=== PATIENT | female | born 1945 | race Caucasian/White ===

== ENCOUNTER → 2017-08-08 | Outpatient (CLI) | payer OTHER, BC ==
[~2017-08-08] VITALS: Ht 165.1 cm; Wt 84.8 kg
[~2017-08-08] MED LIST: ALEVE220 M1 PO; ALEVE220 MG PO; ALLEGRA ALLERG180 MG PO; ARTIFICIAL TEAR15 M3 OPHTHALMIC; ASA81BEC PO; FLONASE 0.05%50 MCG INH; FLONASE 0.05%50 MCG NASAL; GLUCOPHAGE XR500 MG PO; GLUCOPHAGE XR750 MG PO; HUMALOG100 UNIT/1; HYDROCHLOROTHIA25 M2 PO; IBUPROFEN 200200 M1 PO; IMDUR 60 MG TAB60 M1 PO; KEFLEX250 M1 PO; LANTUS SUBQ; LIPITOR10 MG PO; METANX CAPSULE1 EACH PO; METFORMIN HCL500 MG PO; SINGULAIR 10 MG10 MG PO; TOPROL XL50 MG PO; TYLENOL EXTRA500 MG PO; VERAPAMIL ER120 MG PO
--- NOTE | ~2017-08-08 | P ---
[facility] [place] [address] PROCEDURE REPORT Name: BREE GRUBER [id number] Admission: 08/08/17 Attend Phys: Emeterio Rodriguez MD Discharge: Date of : 49 Report #: [id number] THIS REPORT FOR: //name// CC: Emeterio Rodriguez SAAD WOODALL PROCEDURE: ICD generator exchange. PREOPERATIVE DIAGNOSES: Premature battery depletion. POSTOPERATIVE DIAGNOSIS: Premature battery depletion. HISTORY: The patient is a 71-year-old female with a history of ICD implantation for known ventricular arrhythmias. She has had prior issues with lead fracture and previous premature battery depletions. Again, recently, she was noted to have premature battery depletion of her ICD and she is here for ICD generator exchange. ANESTHESIA: The patient underwent MAC anesthesia, with no anesthesia-related complications. DESCRIPTION OF PROCEDURE: The patient underwent informed consent. We discussed the details of the procedure, including the risks, which included but not limited to bleeding, infection, vascular damage, cardiac perforation and pneumothorax. The patient has requested that she also have her pocket revised as she has great discomfort as well as lateral migration of the device into the shoulder. As such, the patient was brought to the EP laboratory in a fasting and sedated state and prepped and draped in a sterile fashion. Prior to the initiation of the procedure, fluoroscopy of her chest was performed, which demonstrated that there was a capped 6944 lead and a capped 5076 lead. Next, the patient was prepped and draped in a sterile fashion. She received IV antibiotics prior to initiation of the procedure. Next, I injected lidocaine to the pocket. I made an incision that was quite lower than her prior incisions as these prior incisions had very thin skin due to the chronic migration of the device into this area. Therefore, the pocket was entered at the lower site. I removed the device from the pocket and then I extended the pocket both inferiorly and medially to hopefully prevent the device from pressing against this lateral incision. Next, the device was disconnected and the new device was connected, tested and found to be functioning normally. I then placed a TYRX antibiotic pouch over the device and then placed the device into the pocket. I then irrigated the pocket with vancomycin solution and then I sutured the device header low into the pocket to hopefully prevent further lateral migration. The pocket was irrigated with vancomycin solution. I then closed the pocket in 3 layers using 2-0 for the deep layer, 3-0 for the mid layer and 4-[address] [id number] PROCEDURE REPORT Name: BREE GRUBER Room #: [facility]#: [id number] Admission: 08/08/17 Attend Phys: Emeterio Rodriguez MD Discharge: Date of : 49 Report #: [id number] subcuticular layer and surgical glue was placed to the outer skin layer. The patient awoke neurologically hemodynamically intact. No complications and no significant bleeding. The explanted device was a Medtronic model #Y314XSZ, serial #[id number]. This was originally implanted back in 03/2014. The newly implanted device was a Medtronic model #SULF5Z1, serial #[id number]. 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 The RV lead was a Medtronic model #6935, 55 cm, serial #[id number]. This lead demonstrated an R-wave of 11.1 millivolts, pacing impedance of 532 ohms, high-voltage impedance of 71 ohms and a pacing threshold of 0.5 volts at 0.4 milliseconds. The device was programmed to the VVI 40 mode. The VT zone was set at 330 milliseconds with burst, followed by ramp, followed by max output shocks. The VF zone was set at 270 milliseconds with max output shocks. CONCLUSIONS: 1. Successful ICD generator exchange. 2. Satisfactory right ventricular pacing and sensing thresholds. <ELECTRONICALLY SIGNED> By: Emeterio Rodriguez MD 08/08/17 1544 [id number] Emeterio Rodriguez MD /nt
[2017-08-08 07:12] VITALS: BP 124/57
[2017-08-08 07:18] LABS: ABSOLUTE NEUTROPHILS 3.6 thou/uL (1.4-8.2); BASOPHILS 1.2 % (0.0-2.0); EOSINOPHILS 4.6 % (0.0-3.0); HEMATOCRIT 40.9 % (37.0-47.0); HEMOGLOBIN 13.6 gm/dL (12.0-15.0); LYMPHOCYTES 33.7 % (24.0-44.0); MANUAL DIFF NO; MCH 30.5 pg (26.0-34.0); MCHC 33.3 g/dL (28.0-37.0); MCV 91.4 fL (80.0-100.0); PLATELET COUNT 282 thou/uL (150-400); POLYS 48.5 % (36.0-66.0); RBC 4.48 mil/uL (4.20-5.00); RDW 13.4 % (10.5-14.5); WBC 7.3 thou/uL (4.0-11.0)
[2017-08-08 07:29] LABS: CALCIUM 9.3 mg/dL (8.5-10.1); CREATININE 1.4 mg/dL (0.6-1.0); POTASSIUM 4.1 mmol/L (3.5-5.1)
[2017-08-08 07:31] LABS: APTT 27.1 Seconds (24.5-32.8); PROTIME 10.2 Seconds (9.3-11.4)
[2017-08-08 07:36] LABS: ALBUMIN 3.5 g/dL (3.4-5.0); TOTAL BILIRUBIN 0.6 mg/dL (<0.1-1.0); TOTAL PROTEIN 7.6 g/dL (6.4-8.2)
== END | disposition home or self-care (01) ==
LOC: CATH 06:33
PROVIDERS: Internal Medicine Cardiovascular Disease
DX: Z45.010 Encounter for checking and testing of cardiac pacemaker pulse generator [battery] (principal); I10 Essential (primary) hypertension; I25.2 Old myocardial infarction; E11.9 Type 2 diabetes mellitus without complications; E78.5 Hyperlipidemia, unspecified; I25.10 Atherosclerotic heart disease of native coronary artery without angina pectoris; Z79.899 Other long term (current) drug therapy; Z82.49 Family history of ischemic heart disease and other diseases of the circulatory system; Z79.4 Long term (current) use of insulin; Z79.82 Long term (current) use of aspirin; Z98.890 Other specified postprocedural states
CPT/HCPCS: 70005

== ENCOUNTER → 2020-03-02 | Outpatient (CLI) | payer OTHER, BC | LOC: SJCVCIMAG 02-12 10:28 | PROVIDERS: ATTEND Internal Medicine Cardiovascular Disease | DX: Z45.02 Encounter for adjustment and management of automatic implantable cardiac defibrillator (principal); I47.2 Ventricular tachycardia; I10 Essential (primary) hypertension; E78.00 Pure hypercholesterolemia, unspecified; E11.9 Type 2 diabetes mellitus without complications; E78.5 Hyperlipidemia, unspecified; Z79.82 Long term (current) use of aspirin; Z95.810 Presence of automatic (implantable) cardiac defibrillator; Z79.4 Long term (current) use of insulin; Z79.899 Other long term (current) drug therapy; Z82.49 Family history of ischemic heart disease and other diseases of the circulatory system ==